=== PATIENT | male | born 1965 | race Caucasian/White ===

== ENCOUNTER 2018-02-12 11:10 | Emergency (ER) | payer OTHER ==
[~2018-02-12] VITALS: Ht 172.7 cm; Wt 105.0 kg
[2018-02-12 11:33] VITALS: BP 138/85; PULSE 72; RESP 16; TEMP 99.2; O2SAT 97
[2018-02-12] MEDS ORDERED: NEXI40CA PO (12:33)
[2018-02-12] MEDS ORDERED: AUGM875T3 PO (12:33)
[2018-02-12] MEDS ORDERED: MORPHINE SULFATE 4 MG/ML INJ IV PUSH ONE (12:45)
[2018-02-12] MEDS ORDERED: SODIUM CHLOR 0.9% 1000 ML INJ 1,000 ML IV SCH (12:45)
[2018-02-12] MEDS ORDERED: SODIUM CHLORIDE 0.9% FLUSH 10 ML FLUSH IV FLUSH PRN (12:45)
[2018-02-12] MEDS ORDERED: ONDANSETRON HCL 4 MG/2 ML VIAL IVP ONE (12:45)
[2018-02-12] MEDS ORDERED: KETOROLAC TROMETHAMINE 30 MG/ML (IVP) VIAL IVP ONE (12:45)
--- NOTE | 2018-02-12 12:50 | PD ---
HPI Chief Complaint: Abdominal Pain Time Seen by Provider: 12:29 Travel History International Travel<30 days: No Contact w/Intl Traveler<30days: No Traveled to known affect area: No History of Present Illness HPI The patient is a 52-year-old male who presents to the emergency department for abdominal pain. The patient notes an intermittent 3 week history of left lower quadrant abdominal pain which has progressed over the last several days. The patient called his rug cleaner at home who prescribed him Augmentin. The patient has been on Augmentin. The patient states he had 7 episodes of diverticulitis last year, recently underwent endoscopy and colonoscopy for evaluation of possible partial colectomy. The patient denies any fever, does complain of mild nausea without any vomiting. The patient has a small amount of bright red blood with a bowel movement this morning. Symptoms are moderate, possibly exacerbated by history of diverticulitis, and not alleviated with Augmentin. PFSH Past Medical History Diverticulitis: Yes Kidney Stones: Yes Influenza Vaccination: No Past Surgical History Eye Surgery: Yes Genitourinary Surgery: Yes (KIDNEY STONES) Social History Alcohol Use: Yes (RARE) Tobacco Use: No Substance Use: No Allergies-Medications (Allergen,Severity, Reaction): Coded Allergies: No Known Allergies (Unverified , 02/12/18) Reported Meds & Prescriptions Reported Meds & Active Scripts Active Reported Nexium (Esomeprazole DR) 40 Mg Capdr 40 Mg PO DAILY Augmentin (Amoxicillin-Clavulanate) 875-125 Mg Tab 1 Tab PO BID Review of Systems Except as stated in HPI: all other systems reviewed are Neg General / Constitutional: No: Fever HENT: No: Lightheadedness Cardiovascular: No: Chest Pain or Discomfort Respiratory: No: Shortness of Breath Gastrointestinal: Positive: Nausea, Abdominal Pain, Hematochezia, No: Vomiting , Diarrhea Genitourinary: No: Dysuria Physical Exam Narrative GENERAL: Awake, alert, pleasant 52-year-old male who appears his stated age and is in no acute respiratory distress. SKIN: Focused skin assessment warm/dry. HEAD: Atraumatic. Normocephalic. EYES: Lazy right eye. ENT: No nasal bleeding or discharge. Mucous membranes pink and moist. NECK: Trachea midline. No JVD. CARDIOVASCULAR: Regular rate and rhythm. No murmur appreciated. RESPIRATORY: No accessory muscle use. Clear to auscultation. Breath sounds equal bilaterally. GASTROINTESTINAL: Abdomen soft, tenderness palpation left lower quadrant. No guarding or rigidity. Rectal: No obvious hemorrhoids. Digital rectal exam reveals d small amount of bright red blood which is guaiac positive. MUSCULOSKELETAL: No obvious deformities. No clubbing. No cyanosis. No edema. NEUROLOGICAL: Awake and alert. No obvious cranial nerve deficits. Motor grossly within normal limits. Normal speech. PSYCHIATRIC: Appropriate mood and affect; insight and judgment normal. Data Data Last Documented VS Vital Signs Date Time Temp Pulse Resp B/P (MAP) Pulse Ox O2 Delivery O2 Flow Rate FiO2 02/12/18 13:22 99 02/12/18 11:33 99.2 72 16 138/85 (102) Orders Orders Complete Blood Count With Diff (02/12/18 12:45) Comprehensive Metabolic Panel (02/12/18 12:45) Lipase (02/12/18 12:45) Lactic Acid (02/12/18 12:45) Urinalysis - C+S If Indicated (02/12/18 12:45) Ct Abd/Pel W Iv Contrast(Rout) (02/12/18 12:45) Iv Access Insert/Monitor (02/12/18 12:45) Ecg Monitoring (02/12/18 12:45) Oximetry (02/12/18 12:45) Morphine Inj (Morphine Inj) (02/12/18 12:45) Ondansetron Inj (Zofran Inj) (02/12/18 12:45) Sodium Chlor 0.9% 1000 Ml Inj (Ns 1000 M (02/12/18 12:45) Sodium Chloride 0.9% Flush (Ns Flush) (02/12/18 12:45) Ketorolac Inj (Toradol Inj) (02/12/18 12:45) Iohexol 350 Inj (Omnipaque 350 Inj) (02/12/18 14:10) Labs Laboratory Tests Test 02/12/18 13:04 02/12/18 13:24 White Blood Count 8.4 TH/MM3 Red Blood Count 4.94 MIL/MM3 Hemoglobin 15.3 GM/DL Hematocrit 45.5 % Mean Corpuscular Volume 92.2 FL Mean Corpuscular Hemoglobin 31.0 PG Mean Corpuscular Hemoglobin Concent 33.7 % Red Cell Distribution Width 12.6 % Platelet Count 202 TH/MM3 Mean Platelet Volume 8.7 FL Neutrophils (%) (Auto) 66.7 % Lymphocytes (%) (Auto) 22.5 % Monocytes (%) (Auto) 5.6 % Eosinophils (%) (Auto) 4.1 % Basophils (%) (Auto) 1.1 % Neutrophils # (Auto) 5.6 TH/MM3 Lymphocytes # (Auto) 1.9 TH/MM3 Monocytes # (Auto) 0.5 TH/MM3 Eosinophils # (Auto) 0.3 TH/MM3 Basophils # (Auto) 0.1 TH/MM3 CBC Comment DIFF FINAL Differential Comment Blood Urea Nitrogen 18 MG/DL Creatinine 0.74 MG/DL Random Glucose 89 MG/DL Total Protein 7.5 GM/DL Albumin 3.9 GM/DL Calcium Level 8.3 MG/DL Alkaline Phosphatase 77 U/L Aspartate Amino Transf (AST/SGOT) 20 U/L Alanine Aminotransferase (ALT/SGPT) 34 U/L Total Bilirubin 0.3 MG/DL Sodium Level 139 MEQ/L Potassium Level 4.1 MEQ/L Chloride Level 107 MEQ/L Carbon Dioxide Level 26.4 MEQ/L Anion Gap 6 MEQ/L Estimat Glomerular Filtration Rate 111 ML/MIN Lactic Acid Level 0.8 mmol/L Lipase 231 U/L Urine Collection Type VOIDED Urine Color YELLOW Urine Turbidity CLEAR Urine pH 6.0 Urine Specific [place] 1.025 Urine Protein NEG mg/dL Urine Glucose (UA) NEG mg/dL Urine Ketones NEG mg/dL Urine Occult Blood NEG Urine Nitrite NEG Urine Bilirubin NEG Urine Urobilinogen 0.2 MG/DL Urine Leukocyte Esterase NEG Urine WBC 0-2 /hpf Urine Squamous Epithelial Cells 0-2 /hpf Microscopic Urinalysis Comment CULT NOT INDICATED MDM Medical Decision Making Medical Screen Exam Complete: Yes Emergency Medical Condition: Yes Medical Record Reviewed: Yes Interpretation(s) Laboratory Tests Test 02/12/18 13:04 02/12/18 13:24 White Blood Count 8.4 TH/MM3 Red Blood Count 4.94 MIL/MM3 Hemoglobin 15.3 GM/DL Hematocrit 45.5 % Mean Corpuscular Volume 92.2 FL Mean Corpuscular Hemoglobin 31.0 PG Mean Corpuscular Hemoglobin Concent 33.7 % Red Cell Distribution Width 12.6 % Platelet Count 202 TH/MM3 Mean Platelet Volume 8.7 FL Neutrophils (%) (Auto) 66.7 % Lymphocytes (%) (Auto) 22.5 % Monocytes (%) (Auto) 5.6 % Eosinophils (%) (Auto) 4.1 % Basophils (%) (Auto) 1.1 % Neutrophils # (Auto) 5.6 TH/MM3 Lymphocytes # (Auto) 1.9 TH/MM3 Monocytes # (Auto) 0.5 TH/MM3 Eosinophils # (Auto) 0.3 TH/MM3 Basophils # (Auto) 0.1 TH/MM3 CBC Comment DIFF FINAL Differential Comment Blood Urea Nitrogen 18 MG/DL Creatinine 0.74 MG/DL Random Glucose 89 MG/DL Total Protein 7.5 GM/DL Albumin 3.9 GM/DL Calcium Level 8.3 MG/DL Alkaline Phosphatase 77 U/L Aspartate Amino Transf (AST/SGOT) 20 U/L Alanine Aminotransferase (ALT/SGPT) 34 U/L Total Bilirubin 0.3 MG/DL Sodium Level 139 MEQ/L Potassium Level 4.1 MEQ/L Chloride Level 107 MEQ/L Carbon Dioxide Level 26.4 MEQ/L Anion Gap 6 MEQ/L Estimat Glomerular Filtration Rate 111 ML/MIN Lactic Acid Level 0.8 mmol/L Lipase 231 U/L Urine Color YELLOW Urine Turbidity CLEAR Urine pH 6.0 Urine Specific [place] 1.025 Urine Protein NEG mg/dL Urine Glucose (UA) NEG mg/dL Urine Ketones NEG mg/dL Urine Occult Blood NEG Urine Nitrite NEG Urine Bilirubin NEG Urine Urobilinogen 0.2 MG/DL Urine Leukocyte Esterase NEG Last Impressions Abdomen/Pelvis CT 02/12/18 1245 Signed Impressions: Service Date/Time: January 14:04 - CONCLUSION: 1. Mild proximal sigmoid diverticulitis. 2. Numerous small bilateral nonobstructing renal calculi. 3. Fatty liver. 4. Fat containing umbilical hernia measuring about 3 cm in diameter. Jefry Freeman MD Differential Diagnosis Differential diagnosis includes diverticulitis, diverticular abscess, diverticulosis, colitis, enteritis, pancreatitis, partial small bowel obstruction. Narrative Course IV was established, labs are drawn and sent, and the patient was placed on cardiac telemetry monitoring and continuous pulse oximetry monitoring. The patient was administered morphine, Zofran, Toradol, and IV fluids. CT of the abdomen and pelvis with IV contrast was obtained. Patient's white count and lactic acid are unremarkable. LFTs and lipase are within normal limits. CT is positive for mild sigmoid diverticulitis, no evidence of abscess. I did discussion with the patient regarding continuing Augmentin versus taking Cipro and Flagyl. Patient has been on Cipro and Flagyl in the past, after discussion was agreed he we would switch antibiotics. He was provided a dose of oral Cipro and IV Flagyl, will be discharged home with his CT results and lab results. I will also write for pain medications. He is advised to follow-up with his rug cleaner and return if symptoms worsen or progress. No driving a motorcycle or vehicle while taking the [place] for pain. [facility] Point of Care Internal Pos. & Neg. Controls: Passed Fecal Specimen Occult Blood: Positive Diagnosis Primary Impression: Sigmoid diverticulitis Patient Instructions: General Instructions Additional Instructions: Medications as directed. Stop Augmentin. Cipro and Flagyl as directed. [place] as needed for pain. No driving while taking [place]. Please provide the patient a copy of his CT results and lab results at discharge for follow-up with his rug cleaner. Return if symptoms worsen or progress. Med/Other Pt SpecificInfo: Prescription(s) given, Med Stopped (Stop Augmentin) Scripts Metronidazole (Flagyl) 500 Mg Tab 500 MG PO BID for Infection for 10 Days, #20 TAB 0 Refills Prov: Fili Ortiz MD 02/12/18 Ciprofloxacin (Cipro) 500 Mg Tab 500 MG PO BID for Infection for 10 Days, #20 TAB 0 Refills Prov: Fili Ortiz MD 02/12/18 Hydrocodone-Acetaminophen ([place]) 5 Mg-325 Mg Tab 1 TAB PO Q6H Y for PAIN, #12 TAB 0 Refills Prov: Fili Ortiz MD 02/12/18 Disposition: DISCHARGE HOME Condition: Stable Fili Ortiz MD Feb 12, 2018 12:50
[2018-02-12 13:12] LABS: AUTOMATED NEUTROPHIL # 5.6 TH/MM3 (1.8-7.7); BASOPHIL # 0.1 TH/MM3 (0-0.2); BASOPHIL % 1.1 % (0.0-2.0); EOSINOPHIL # 0.3 TH/MM3 (0-0.4); EOSINOPHIL % 4.1 % (0.0-4.0); HEMATOCRIT 45.5 % (39.0-51.0); HEMOGLOBIN 15.3 GM/DL (13.0-17.0); LYMPH % 22.5 % (9.0-44.0); LYMPHOCYTE # 1.9 TH/MM3 (1.0-4.8); MEAN CELL VOLUME 92.2 FL (80.0-100.0); MEAN CORPUSCULAR HGB CONC 33.7 % (32.0-36.0); MEAN PLATELET VOLUME 8.7 FL (7.0-11.0); MONO % 5.6 % (0.0-8.0); MONOCYTE # 0.5 TH/MM3 (0-0.9); NEUT % 66.7 % (16.0-70.0); PLATELET COUNT 202 TH/MM3 (150-450); RED BLOOD COUNT 4.94 MIL/MM3 (4.50-5.90); RED CELL DISTRIBUTION WIDTH 12.6 % (11.6-17.2); WHITE BLOOD COUNT 8.4 TH/MM3 (4.0-11.0)
[2018-02-12 13:22] VITALS: O2SAT 99
[2018-02-12 13:28] LABS: CHLORIDE 107 MEQ/L (98-107); SODIUM (NA) 139 MEQ/L (136-145)
[2018-02-12 13:33] LABS: CALCIUM 8.3 MG/DL (8.5-10.1)
[2018-02-12 13:34] LABS: ALBUMIN 3.9 GM/DL (3.4-5.0); BICARBONATE 26.4 MEQ/L (21.0-32.0); BLOOD UREA NITROGEN 18 MG/DL (7-18); GLUCOSE,RANDOM 89 MG/DL (74-106)
[2018-02-12 13:34] LABS: BILIRUBIN, URINE NEG (NEG); BLOOD, URINE NEG (NEG); GLUCOSE,URINE NEG (NEG); KETONE, URINE NEG (NEG); NITRITE,URINE NEG (NEG); URINE COLOR YELLOW (YELLW/STRAW); URINE LEUKOCYTE ESTERASE NEG (NEG)
[2018-02-12 13:37] LABS: AST (GOT) 20 U/L (15-37); CREATININE 0.74 MG/DL (0.60-1.30); GLOMERULAR FILTRATION RATE 111 ML/MIN (>89)
[2018-02-12 13:38] LABS: ALT (GPT) 34 U/L (12-78); TOTAL BILIRUBIN ADULT 0.3 MG/DL (0.2-1.0); TOTAL PROTEIN 7.5 GM/DL (6.4-8.2)
[2018-02-12 13:39] LABS: ALKALINE PHOSPHATASE 77 U/L (45-117)
[2018-02-12 13:53] LABS: SQUAMOUS EPITHELIAL CELL URINE 0-2 /hpf (0-5); WBC, URINE 0-2 /hpf (0-5)
[2018-02-12] MEDS ORDERED: IOHEXOL 350 MG/ML 10 ML VIAL (for RAD DIAG) IVCONTRAST ONE (14:10)
--- NOTE | 2018-02-12 14:34 | RADRPT ---
EXAM DATE/TIME: 02/12/2018 14:04 [facility] COMPARISON: No previous studies available for comparison. INDICATIONS : Left lower quadrant pain. Abdominal distention. Nausea. Blood in stool. IV CONTRAST: 85 cc Omnipaque 350 (iohexol) IV ORAL CONTRAST: No oral contrast ingested. RADIATION DOSE: 20.04 CTDIvol (mGy) MEDICAL HISTORY : Diverticulitis. Renal calculi. SURGICAL HISTORY : None. ENCOUNTER: Initial ACUITY: 4 - 6 days PAIN SCALE: 7/10 LOCATION: Left lower quadrant TECHNIQUE: Volumetric scanning of the abdomen and pelvis was performed. Using automated exposure control and ad justment of the mA and/or kV according to patient size, radiation dose was kept as low as reasonably achievable to obtain optimal diagnostic quality images. DICOM format image data is available electro nically for review and comparison. FINDINGS: There is colonic diverticulosis with mild inflammatory changes around a diverticulum in the left lowe r quadrant characteristic of proximal sigmoid diverticulitis. Findings is clear. Mild fatty liver. Spleen, adrenals and pancreas unremarkable. No calcified gallsto mike. Numerous 1-3 mm nonobstructing calculi in both kidneys. No hydronephrosis. No bladder calculi. No adenopathy or free fluid. No free air. No bowel obstruction. CONCLUSION: 1. Mild proximal sigmoid diverticulitis. 2. Numerous small bilateral nonobstructing renal calculi. 3. Fatty liver. 4. Fat containing umbilical hernia measuring about 3 cm in diameter. Jefry Freeman MD on February 12, 2018 at 14:24 Board Certified Radiologist. This report was verified electronically.
[2018-02-12] MEDS ORDERED: METR-1 PO (14:46)
[2018-02-12] MEDS ORDERED: NORC5TAB PO (14:46)
[2018-02-12] MEDS ORDERED: CIPR-9 PO (14:46)
[2018-02-12] MEDS ORDERED: metroNIDAZOLE 500 MG INJ 100 ML IV ONE (15:00)
[2018-02-12] MEDS ORDERED: CIPROFLOXACIN 500 MG TAB PO ONE (15:00)
[2018-02-12 16:30] VITALS: BP 150/97
== END 2018-02-12 16:32 | disposition home or self-care (01) ==
LOC: PHED 11:10
DX: K57.32 Diverticulitis of large intestine without perforation or abscess without bleeding (principal); R11.0 Nausea; R10.9 Unspecified abdominal pain; K92.1 Melena
CPT/HCPCS: 74177; 80053; 81001; 83605; 83690; 85025; 96374; 96375; 99285; J1885; J2270; J2405; J7030; Q9967